=== PATIENT | female | born 1970 | race Caucasian/White ===

== ENCOUNTER 2022-04-10 18:01 | Emergency (ER) | payer OTHER ==
[2022-04-10 18:23] VITALS: BP 127/67; PULSE 89; RESP 19; TEMP 98.3; BMI 23.8
[2022-04-10] MEDS ORDERED: ACETAMINOPHEN 500 MG TABLET (FP) PO ONE (19:25)
[2022-04-10] MEDS ORDERED: ACETAMINOPHEN 500 MG TABLET (FP) ONE (19:39)
[2022-04-10 21:06] LABS: BASO % 0.2 % (0-2.0); EOS % 0.3 % (0-4.5); HEMATOCRIT 32.6 % (32.4-45.2); HEMOGLOBIN 11.1 GM/dL (10.7-15.3); LYMPH % 11.2 % (8-40); MCH 31.2 pg (25.7-33.7); MEAN CELL VOLUME 91.6 fl (80-96); MEAN PLT VOLUME 7.6 fl (7.5-11.1); MONO % 5.9 % (3.8-10.2); NEUT % 82.4 % (42.8-82.8); PLATELET COUNT 187 10^3/uL (134-434); RBC 3.55 M/mm3 (3.60-5.2); RDW 13.2 % (11.6-15.6); WHITE BLOOD COUNT 11.7 K/mm3 (4.0-10.0)
[2022-04-10 21:26] LABS: CALCIUM 8.2 mg/dL (8.5-10.1)
[2022-04-10 21:27] LABS: BLOOD UREA NITROGEN 12.4 mg/dL (7-18)
[2022-04-10 21:30] LABS: CREATININE 0.6 mg/dL (0.55-1.3)
[2022-04-10 21:31] LABS: BILIRUBIN,TOTAL 0.4 mg/dL (0.2-1); TOT PROT 6.4 g/dl (6.4-8.2)
[2022-04-10 22:27] LABS: HIV INTERPRETATION NEGATIVE (NEGATIVE)
[2022-04-10] MEDS ORDERED: DOXYCYCLINE HYCLATE 100 MG CAPSULE PO ONE (22:58)
[2022-04-10] MEDS ORDERED: AZITHROMYCIN 250 MG TABLET ONE (22:59)
== END 2022-04-10 23:16 | disposition home or self-care (01) ==
LOC: JER 18:01
DX: J18.9 Pneumonia, unspecified organism (principal)
CPT/HCPCS: 0241U-QW; 36415; 71046-TC-FY; 80053; 85025; 87389; 99284-25

== ENCOUNTER 2024-05-06 17:16 | Emergency (ER) | payer OTHER ==
[2024-05-06 17:29] VITALS: BMI 22.6
[2024-05-06] MEDS ORDERED: morphine SULFATE 4 MG/ML VIAL ONE (17:55)
[2024-05-06] MEDS: morphine CARPU-JECT 4 MG/1 ML DISP.SYRIN IVPUSH ONE (18:00)
[2024-05-06 18:13] LABS: BASO % 0.3 % (0-2.0); HEMATOCRIT 35.1 % (32.4-45.2); HEMOGLOBIN 11.8 GM/dL (10.7-15.3); MCH 30.6 pg (25.7-33.7); MCHC 33.6 g/dl (32.0-36.0); MEAN PLT VOLUME 7.9 fl (7.5-11.1); MONO % 10.2 % (3.8-10.2); NEUT % 42.5 % (42.8-82.8); PLATELET COUNT 214 10^3/uL (134-434); RBC 3.85 M/mm3 (3.60-5.2); RDW 13.5 % (11.6-15.6); WHITE BLOOD COUNT 4.6 K/mm3 (4.0-10.0)
[2024-05-06 18:31] LABS: CHLORIDE 102 mmol/L (98-107); POTASSIUM 4.1 mmol/L (3.5-5.1); SODIUM 138 mmol/L (136-145)
[2024-05-06 18:34] LABS: ALBUMIN 3.7 g/dl (3.4-5.0); ANION GAP 6 mmol/L (4-13); BLOOD UREA NITROGEN 20.6 mg/dL (7-18); CO2 31 mmol/L (21-32); GLUCOSE,RANDOM 105 mg/dL (74-106)
[2024-05-06 18:37] LABS: CREATININE 0.7 mg/dL (0.55-1.3); SGOT/AST 24 U/L (15-37); SGPT/ALT 29 U/L (13-61)
[2024-05-06 18:38] LABS: BILIRUBIN,TOTAL 0.3 mg/dL (0.2-1); TOT PROT 6.8 g/dl (6.4-8.2)
[2024-05-06 18:40] LABS: ALK PHOS 72 U/L (45-117)
[2024-05-06] MEDS: DIPHTH,PERTUSS(ACELL),TET 0.5 ML DISP.SYRIN IM ONE (19:10)
[2024-05-06] MEDS ORDERED: FENTANYL CITRATE/PF 50 MCG/ML VIAL ONE (20:20)
[2024-05-07] MEDS ORDERED: morphine SULFATE 4 MG/ML VIAL ONE (00:37)
[2024-05-07] MEDS: morphine CARPU-JECT 4 MG/1 ML DISP.SYRIN IVPUSH ONE (00:45)
[2024-05-07 04:16] VITALS: BP 134/84; PULSE 81; RESP 18; TEMP 97
[2024-05-07] MEDS ORDERED: BACITRACIN ZINC 15 GM TUBE TOPICAL OINTMENT ONE (06:13)
[2024-05-07] MEDS: BACITRACIN ZINC 15 GM TUBE TOPICAL OINTMENT TP ONE (06:22)
== END 2024-05-07 07:08 | disposition home or self-care (01) ==
LOC: JER 17:16
PROC: 3E033NZ Introduction of Analgesics, Hypnotics, Sedatives into Peripheral Vein, Percutaneous Approach (ICD-10-PCS; principal; 2024-05-06)
PROC: 3E033NZ Introduction of Analgesics, Hypnotics, Sedatives into Peripheral Vein, Percutaneous Approach (ICD-10-PCS; 2024-05-06)
PROC: 3E033NZ Introduction of Analgesics, Hypnotics, Sedatives into Peripheral Vein, Percutaneous Approach (ICD-10-PCS; 2024-05-07)
DX: K44.9 Diaphragmatic hernia without obstruction or gangrene (principal); K83.8 Other specified diseases of biliary tract; R91.8 Other nonspecific abnormal finding of lung field; V19.9XXA Pedal cyclist (driver) (passenger) injured in unspecified traffic accident, initial encounter
CPT/HCPCS: 36415; 70450-TC; 70486-TC; 71260-TC; 72125-TC; 72128-TC; 72131-TC; 72170-TC-FY; 73560-TC-RT-FY; 73590-TC-RT-FY; 74177-TC; 80053; 80307; 83605; 84703; 85025; 86850; 86900; 86901; 93005; 93010; 99285-25; Q9967